=== PATIENT | male | born 1965 | race Caucasian/White ===

== ENCOUNTER 2022-04-24 08:16 | Inpatient (IN) | payer BC ==
[2022-04-24] VITALS (472 sets, daily range): BP systolic 112–143; BP diastolic 69–90; PULSE 86–98; TEMP 98–99; O2SAT 89–97
[~2022-04-24] VITALS: Ht 177.8 cm; Wt 93.2 kg
[2022-04-24 08:39] LABS: BASO % 0.2 % (0.0-2.0); EOS % 0.2 % (0.0-4.0); GRAN # 11.4 K/mm3 (1.4-6.5); GRAN % 89.3 % (42.2-75.2); HEMATOCRIT 48.7 % (42.0-52.0); HEMOGLOBIN 17.2 g/dl (13.5-18.0); INR 1.1 (0.8-3.0); LYMPH # 0.6 K/mm3 (1.2-3.4); LYMPH % 4.5 % (20.0-51.0); MEAN CELL VOLUME 95 fl (80.0-100.0); MEAN CORPUSCULAR HEMOGLOBIN 33 pg (27-31); MEAN CORPUSCULAR HGB CONC 35 g/dl (33.0-37.0); MEAN PLATELET VOLUME 8.8 fl (7.4-10.4); MONO # 0.7 K/mm3 (0.1-0.6); MONO % 5.6 % (1.7-9.3); PLATELET COUNT 168 K/mm3 (130-400); PROTHROMBIN TIME 12.3 SECONDS (9.7-12.8); RED BLOOD COUNT 5.15 M/mm3 (4.20-5.60); REDCELL DISTRIBUTION WIDTH-CV 12.4 % (11.5-14.5)
[2022-04-24 08:42] LABS: PARTIAL THROMBOPLASTIN TIME 30.5 SECONDS (26.0-37.0)
[2022-04-24] MEDS ORDERED: COZAAR100 MG PO (08:46)
[2022-04-24] MEDS ORDERED: NORVASC 5MG5 MG/TAB PO (08:47)
[2022-04-24] MEDS ORDERED: PEPCID40 MG PO (08:47)
[2022-04-24 08:48] LABS: ALBUMIN 4.3 gm/dL (3.5-5.0); BILIRUBIN,TOTAL 1.4 mg/dL (0.2-1.2); C-REACTIVE PROTEIN 0.41 mg/dL (0.00-0.50); CALCIUM 9.2 mg/dL (8.4-10.2); CREATININE, serum 1.26 mg/dL (0.72-1.25); TOTAL PROTEIN 7.7 gm/dL (6.2-8.1)
--- NOTE | 2022-04-24 14:28 | NUR ---
SEE MERGE FOR AL MEDICATIONS, INTERVENTIONS AND VITALS.
--- NOTE | 2022-04-24 15:45 | NUR ---
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 Alert and oriented and in no distress. Radial site assessed; soft and non-tender with +2 palpable pulses. No concerns noted at this time.
[2022-04-24] MEDS ORDERED: LIPITOR20 MG PO (15:59)
[2022-04-24] MEDS ORDERED: TOPROL XL 25MG25 MG (15:59)
[2022-04-25] VITALS (1169 sets, daily range): BP systolic 108–163; BP diastolic 64–85; PULSE 81–92; TEMP 98.3–99.4; O2SAT 88–97
[2022-04-25] MEDS ORDERED: MELATONIN5 M1 PO (00:13)
--- NOTE | 2022-04-25 00:38 | NUR ---
BAND REMOVED BANDAGED NO REDNESS SWELLING OR BLEEDING AT SITE
[2022-04-25 05:05] LABS: BASO % 0.3 % (0.0-2.0); EOS % 0.4 % (0.0-4.0); GRAN # 5.6 K/mm3 (1.4-6.5); GRAN % 79.8 % (42.2-75.2); HEMATOCRIT 38.7 % (42.0-52.0); LYMPH # 0.7 K/mm3 (1.2-3.4); LYMPH % 10.5 % (20.0-51.0); MEAN CELL VOLUME 93 fl (80.0-100.0); MEAN CORPUSCULAR HEMOGLOBIN 33 pg (27-31); MEAN CORPUSCULAR HGB CONC 35 g/dl (33.0-37.0); MEAN PLATELET VOLUME 8.6 fl (7.4-10.4); MONO # 0.6 K/mm3 (0.1-0.6); MONO % 8.6 % (1.7-9.3); PLATELET COUNT 149 K/mm3 (130-400); RED BLOOD COUNT 4.15 M/mm3 (4.20-5.60); REDCELL DISTRIBUTION WIDTH-CV 12.6 % (11.5-14.5)
[2022-04-25 05:11] LABS: HEMOGLOBIN 13.5 g/dl (13.5-18.0)
[2022-04-25 05:31] LABS: CALCIUM 8.2 mg/dL (8.4-10.2); CREATININE, serum 0.8 mg/dL (0.72-1.25); POTASSIUM 3.6 mmol/L (3.5-4.5)
--- NOTE | 2022-04-25 07:05 | NUR ---
BEDSIDE REPORT RECEIVED FROM ETHEL TRUJILLO. PT APPEARS TO BE SLEEPING AT THIS TIME. NO S/S OF DISCOMFORT. NITRO GTT INFUSING.
--- NOTE | 2022-04-25 08:05 | NUR ---
DR. ULLOA IN WITH PATIENT AT TIME OF ASSESSMENT. VERBAL ORDER FROM DR. ULLOA TO D/C NITRO GTT. NITRO GTT TURNED OFF AT THIS TIME.
--- NOTE | 2022-04-25 08:50 | NUR ---
DR. ULLOA PRESENT AT TIME OF PT'S ASSESSMENT. VERBAL ORDER FROM DR. ULLOA TO Soraida'Carlyn NITRO GTT. NITRO GTT TURNED OFF AT THIS TIME.
--- NOTE | 2022-04-25 09:18 | NUR ---
Patient admitted to ICU from ER on 04-24-22. Sourcing Consultant met with Patient in his room to conduct Care Managment intake and discuss discharge planning. Patient reports that he lives in [place], [place] with his , Destini P: [phone]. Patient reports that he is in [place], [place] to visit his son who attends [facility]. Patient denies the use of O2 and DME at home. Patient verrified his insurance as [employer]. Patient states that he is established with PCP in [place]. PAtient inquired about AD and AD paperwork was provided to PT. Pt reports the intent to D/C home and will coordinate his own transportation. PAtient reports to be independent with ADL/IADLs. Patient reported that his will be on site on this day and it will be a good time for family collaboration.
--- NOTE | 2022-04-25 11:44 | NUR ---
Discussed when to contact the physician for signs of symptoms of complications or [place]. Also reviewed risk factors for heart disease. Covered applicable modifiable risk factors including the following: tobacco cessation, HTN, hyperlipidemia, diabetes, overweight/obesity, sedentary lifestyle, and stress/depression. Patient verbalized understanding. Referral sent to local facility patient requested - [place] [place] [facility] with patient's permission. Referral also included name of local Supervisor Grower to facilitate referral. [facility] number given if any issues arise in referral process.
--- NOTE | 2022-04-25 12:23 | NUR ---
Initial visit; Patient thanked Protective Signal Repairer Helper for looking in on him and offering him God's blessings and to keep him in her prayers.
--- NOTE | 2022-04-25 17:20 | NUR ---
PT C/O HEADACHE WHEN HE COUGHS. SOON HE STOPS COUGHING IT GOES AWAY. DR. Tess CONDE NOTIFIED. DR. CONDE RECOMMENDS TRYING TYLENOL. IF TYLENOL DOES NOT RELEIVE PAIN THEN LET HOSPITALIST KNOW.
[2022-04-26] VITALS (65 sets, daily range): BP systolic 102–113; BP diastolic 56–94; PULSE 63–74; TEMP 98–98.4; O2SAT 85–96
[2022-04-26] MEDS ORDERED: ELIQUIS 5MG PO (10:02)
[2022-04-26] MEDS ORDERED: CLEOCIN HCL300 MG PO (10:02)
[2022-04-26] MEDS ORDERED: PLAVIX 75MG TAB75 MG PO (10:02)
[2022-04-26] MEDS ORDERED: LIPITOR 80MG80 MG PO (10:02)
[2022-04-26] MEDS ORDERED: BETAPACE 80MG80 MG PO (10:03)
[2022-04-26] MEDS ORDERED: ASPIRIN E.C. 8181 MG PO (10:06)
--- NOTE | 2022-04-26 10:06 | NUR ---
Pharmacy Technician Infusion met with Patient and his at bedside to follow-up on the Advanced Directive paperwork provided to him. Patient reported that he intends to complete Advanced Directives when outpatient.
--- NOTE | 2022-04-26 13:14 | NUR ---
PT HAD UNEVENTFUL DAY. CLEARED FROM CARDIOLOGY FOR DISCHARGE AND HOSPITALIST. DISCHARGE INSTRUCTIONS DISCUSSED WITH PT AND HIS WHO VERBALIZED INSTRUCTIONS. ALL QUESTIONS ANSWERED. NO FURTHER NEEDS EXPRESSED. PT ESCORTED OUT VIA AMBULATORY TO ER ENTRANCE.
== END 2022-04-26 16:46 | disposition home or self-care (01) | DRG 249 ==
LOC: COL.ER 08:16 → ICU 10:22 → COL.ER 10:22 → ICU 04-26 13:07
PROVIDERS: Family Medicine; Physician Assistant; ADMIT Internal Medicine
PROC: 02703DZ Dilation of Coronary Artery, One Artery with Intraluminal Device, Percutaneous Approach (ICD-10-PCS; principal; 2022-04-24)
PROC: 02C03ZZ Extirpation of Matter from Coronary Artery, One Artery, Percutaneous Approach (ICD-10-PCS; 2022-04-24)
PROC: 0JH632Z Insertion of Monitoring Device into Chest Subcutaneous Tissue and Fascia, Percutaneous Approach (ICD-10-PCS; 2022-04-24)
PROC: 4A023N7 Measurement of Cardiac Sampling and Pressure, Left Heart, Percutaneous Approach (ICD-10-PCS; 2022-04-24)
PROC: B2111ZZ Fluoroscopy of Multiple Coronary Arteries using Low Osmolar Contrast (ICD-10-PCS; 2022-04-24)
DX: I21.4 Non-ST elevation (NSTEMI) myocardial infarction (principal); N17.9 Acute kidney failure, unspecified; I48.91 Unspecified atrial fibrillation; I25.110 Atherosclerotic heart disease of native coronary artery with unstable angina pectoris; E78.5 Hyperlipidemia, unspecified; K21.9 Gastro-esophageal reflux disease without esophagitis; E87.5 Hyperkalemia; D72.829 Elevated white blood cell count, unspecified; R19.7 Diarrhea, unspecified; R11.2 Nausea with vomiting, unspecified; I10 Essential (primary) hypertension
CPT/HCPCS: OP; C1757; C1764; C1769; C1876; C1887; J0583; J1644; J2250; J2270; J2405; J3010; J7030; J7120; Q9967